=== PATIENT | male | born 1950 ===

== ENCOUNTER → 2018-06-16 | Outpatient (CLI) | payer MEDICARE, OTHER | LOC: DL.CLIN 15:30 | DX: D49.2 Neoplasm of unspecified behavior of bone, soft tissue, and skin (principal) | CPT/HCPCS: 99212 ==

== ENCOUNTER 2020-01-20 14:22 | Inpatient (IN) | payer MEDICARE, OTHER ==
[2020-01-20] MEDS ORDERED: Sodium Chloride 0.9% 10 ML Syringe FLUSH PRN ×2 (14:30→17:46)
[2020-01-20] MEDS ORDERED: Aspirin 81 MG Tab.Chew PO ONE (14:31)
[2020-01-20] MEDS: Nitroglycerin 0.4 MG Tab.SL SL PRN ×2 (14:49→15:03)
--- NOTE | 2020-01-20 15:05 | CR ---
PROCEDURE INFORMATION: Exam: XR Chest, 1 View Exam date and time: 01/20/2020 2:43 PM Age: 69 years old Clinical indication: Chest pain TECHNIQUE: Imaging protocol: XR of the chest Views: 1 view. COMPARISON: No relevant prior studies available. FINDINGS: Lungs: Unremarkable. No consolidation. Pleural space: Unremarkable. No pleural effusion. No pneumothorax. Heart/Mediastinum: Unremarkable. No cardiomegaly. Bones/joints: Unremarkable. IMPRESSION: No acute findings.
[2020-01-20 15:13] LABS: ANION GAP 15.2 mEq/L (7-13); CHLORIDE,CL 103 mmol/L (98-107); SODIUM,NA 139 mmol/L (136-145)
--- NOTE | 2020-01-20 15:55 | EDM.PDOC ---
Scribed by Reina Mullen 01/20/20 1510 for Betty Gutierrez MD ED HPI GENERAL MEDICAL PROBLEM - General Chief Complaint: Chest Pain Stated Complaint: CHEST PAINS/LEFT ARM PAIN Time Seen by Provider: 01/20/20 14:25 Source of Information: Reports: Patient, RN, RN Notes Reviewed History Limitations: Reports: No Limitations - History of Present Illness INITIAL COMMENTS - FREE TEXT/NARRATIVE: Patient presents to ED by POV with complaint of chest pain tht began in the past hour. Earlier today the patient had been deer hunting and walked longer than usual and exerted himself more than usual. He shot a deer and drug it back to his truck. He tried to lift into the bed of his truck but was unable and had to go and get help. Shortly after he had onset of chest pain that radiated to the left shoulder and left arm. He admits to mild shortness of breath. Denies nausea, palpitations or syncope. Denies history of coronary artery disease, hypertension or hyperlipidemia. Admits to smoking to 1.5 packs of cigarettes per day since age 18. Onset: Today Duration: Getting Worse Location: Reports: Chest Quality: Reports: Ache Severity: Severe Improves with: Reports: None Worsens with: Reports: None Associated Symptoms: Reports: No Other Symptoms Chest Pain Score (Numeric/FACES): 5 - Related Data Allergies Allergy/AdvReac Type Severity Reaction Status Date / Time No Known Allergies Allergy Verified 09/15/15 00:20 Home Meds: Home Meds . [No Known Home Meds] 09/15/15 [History] ED ROS GENERAL - Review of Systems Review Of Systems: Comprehensive ROS is negative, except as noted in HPI. ED EXAM, GENERAL - Physical Exam Exam: See Below Exam Limited By: No Limitations General Appearance: Alert, No Apparent Distress Eye Exam: Bilateral Eye: Normal Inspection Ears: Hearing Grossly Normal Nose: Normal Inspection, Normal Mucosa, No Blood Throat/Mouth: Normal Lips, Normal Voice, No Airway Compromise Head: Atraumatic, Normocephalic Neck: Normal Inspection, Supple, Non-Tender, Full Range of Motion Respiratory/Chest: No Respiratory Distress, No Accessory Muscle Use, Chest Non- Tender, Decreased Breath Sounds, Other (Coarse breath sounds throughout B/L ). No: Rales, Rhonchi, Wheezing, Stridor Cardiovascular: Normal Peripheral Pulses, Regular Rate, Rhythm, No Edema, No G allop, No JVD, No Murmur, No Rub GI/Abdominal: Normal Bowel Sounds, Soft, Non-Tender, No Organomegaly, No Distention, No Abnormal Bruit, No Mass Back Exam: Normal Inspection Extremities: Normal Inspection, Normal Range of Motion, Non-Tender, Normal Capillary Refill, No Pedal Edema Neurological: Alert, Oriented, CN II-XII Intact, Normal Cognition, Normal Gait, No Motor/Sensory Deficits Psychiatric: Normal Affect, Normal Mood Skin Exam: Warm, Dry, Intact, No Rash, Other (Dusky todd coloration on arrival.) #1 Interpretation EKG Date: 01/20/20 Time: 14:33 Rhythm: Other (sinus rhythm) Rate (Beats/Min): 92 Webster: Normal P-Wave: Present QRS: Normal ST-T: Other (repolarization abnormality suggests ischemia, anterior-lateral leads.) QT: Normal #2 Interpretation EKG Date: 01/20/20 Time: 15:35 Rhythm: Other (sinus rhythm) Rate (Beats/Min): 82 Webster: Normal P-Wave: Present QRS: Normal ST-T: Other (borderline repolarization abnoirmality) QT: Normal Course - Vital Signs Last Recorded V/S: Last Vital Signs Temp 97.9 F 01/20/20 14:34 Pulse 93 01/20/20 14:34 Resp 19 01/20/20 14:34 BP 117/87 01/20/20 15:03 Pulse Ox 95 01/20/20 14:34 - Orders/Labs/Meds Orders: Active Orders 24 hr Category Date Time Status EKG 12 Lead [EKG Documentation Completion] [RC] STAT Care 01/20/20 14:24 Active Peripheral IV Care [RC] . DIRECTED Care 01/20/20 14:31 Active Nitroglycerin [Nitrostat] Med 01/20/20 14:31 Active 0.4 mg SL Q5M PRN Sodium Chloride 0.9% [Saline Flush] Med 01/20/20 14:30 Active 10 ml FLUSH ASDIRECTED PRN Peripheral IV Insertion Adult [OM.PC] Stat Oth 01/20/20 14:31 Ordered Medication Orders Nitroglycerin (Nitrostat) 0.4 mg SL Q5M PRN PRN Reason: Chest Pain Last Admin: 01/20/20 15:03 Dose: 0.4 mg Documented by: Admin: 01/20/20 14:49 Dose: 0.4 mg Documented by: DUSTY Sodium Chloride (Saline Flush) 10 ml FLUSH ASDIRECTED PRN PRN Reason: Keep Vein Open Last Admin: 01/20/20 14:49 Dose: 10 ml Documented by: DUSTY Labs: Laboratory Tests 01/20/20 01/20/20 01/20/20 Range/Units 14:40 14:40 14:40 WBC 12.8 H (5.0-10.0) 10^3/uL RBC 5.70 (4.6-6.2) 10^6/uL Hgb 17.1 (14.0-18.0) g/dL Hct 50.5 (40.0-54.0) % MCV 88.6 (80-100) fL MCH 30.0 (27.0-34.0) pg MCHC 33.9 (33.0-35.0) g/dL Plt Count 241 (150-450) 10^3/uL Neut % (Auto) 73.8 (42.2-75.2) % Lymph % (Auto) 18.5 L (20.5-50.1) % Cannon % (Auto) 6.7 (2-8) % Eos % (Auto) 0.5 L (1.0-3.0) % Baso % (Auto) 0.5 (0.0-1.0) % PT 10.2 (9.0-12.0) SEC INR 1.1 (0.9-1.2) APTT (22.0-34.0) SEC D-Dimer, Quantitative 992 H (0-400) ng/mL Sodium 139 (136-145) mmol/L Potassium 4.2 (3.5-5.1) mmol/L Chloride 103 (98-107) mmol/L Carbon Dioxide 25 (21-32) mmol/L Anion Gap 15.2 H (7-13) mEq/L BUN 28 H (7-18) mg/dL Creatinine 1.93 H (0.70-1.30) mg/dL Est Cr Clr Drug Dosing 39.65 mL/min Estimated GFR (MDRD) 35 BUN/Creatinine Ratio 14.5 (No establ ref range) Glucose 127 H (74-99) mg/dL Calcium 9.2 (8.5-10.1) mg/dL Total Bilirubin 0.3 (0.2-1.0) mg/dL AST 18 (15-37) U/L ALT 22 (16-63) U/L Alkaline Phosphatase 92 (46-116) U/L Creatine Kinase 234 (39-308) U/L Troponin I < 0.017 (0.000-0.056) ng/mL C-Reactive Protein 1.5 H (0.0-0.9) mg/dL B-Natriuretic Peptide 11 (0-100) pg/ml Total Protein 7.7 (6.4-8.2) g/dL Albumin 3.7 (3.4-5.0) g/dL Globulin 4.0 Albumin/Globulin Ratio 0.9 Amylase 71 (25-115) U/L Lipase 174 (73-393) U/L SARS CoV-2 RNA Rapid VASU (NEGATIVE) 01/20/20 01/20/20 Range/Units 14:40 14:55 WBC (5.0-10.0) 10^3/uL RBC (4.6-6.2) 10^6/uL Hgb (14.0-18.0) g/dL Hct (40.0-54.0) % MCV (80-100) fL MCH (27.0-34.0) pg MCHC (33.0-35.0) g/dL Plt Count (150-450) 10^3/uL Neut % (Auto) (42.2-75.2) % Lymph % (Auto) (20.5-50.1) % Cannon % (Auto) (2-8) % Eos % (Auto) (1.0-3.0) % Baso % (Auto) (0.0-1.0) % PT (9.0-12.0) SEC INR (0.9-1.2) APTT 21.9 L (22.0-34.0) SEC D-Dimer, Quantitative (0-400) ng/mL Sodium (136-145) mmol/L Potassium (3.5-5.1) mmol/L Chloride (98-107) mmol/L Carbon Dioxide (21-32) mmol/L Anion Gap (7-13) mEq/L BUN (7-18) mg/dL Creatinine (0.70-1.30) mg/dL Est Cr Clr Drug Dosing mL/min Estimated GFR (MDRD) BUN/Creatinine Ratio (No establ ref range) Glucose (74-99) mg/dL Calcium (8.5-10.1) mg/dL Total Bilirubin (0.2-1.0) mg/dL AST (15-37) U/L ALT (16-63) U/L Alkaline Phosphatase (46-116) U/L Creatine Kinase (39-308) U/L Troponin I (0.000-0.056) ng/mL C-Reactive Protein (0.0-0.9) mg/dL B-Natriuretic Peptide (0-100) pg/ml Total Protein (6.4-8.2) g/dL Albumin (3.4-5.0) g/dL Globulin Albumin/Globulin Ratio Amylase (25-115) U/L Lipase (73-393) U/L SARS CoV-2 RNA Rapid VASU Negative (NEGATIVE) Meds: Medications Generic Name Dose Route Start Last Admin Trade Name Freq PRN Reason Stop Dose Admin Nitroglycerin 0.4 mg 01/20/20 14:31 01/20/20 15:03 Nitrostat SL 0.4 mg Q5M PRN Administration Chest Pain Sodium Chloride 10 ml 01/20/20 14:30 01/20/20 14:49 Saline Flush FLUSH 10 ml ASDIRECTED PRN Administration Keep Vein Open Discontinued Medications Generic Name Dose Route Start Last Admin Trade Name Freq PRN Reason Stop Dose Admin Aspirin 324 mg 01/20/20 14:31 01/20/20 14:48 Aspirin PO 01/20/20 14:32 324 mg ONETIME ONE Administration - Radiology Interpretation Free Text/Narrative:: [facility] Final Radiology Report Call: [phone] assistance Online chat: [email or web address] Name: RICK CARRERA Age: 69Years M Date: 01/20/2020 SSN: -- : [id number] Study: CR CHEST 1V FRONTAL Requesting Physician: BETTY GUTIERREZ Images: 1 Addl Studies: Provided Clinical History: chest pain Contrast: Contrast Medium: Contrast Amount: Contrast Method: CONFIDENTIALITY STATEMENT This report is intended only for use by the referring physician, and only in accordance with law. If you received this in error, call [phone]. Page 1 of 1 PROCEDURE INFORMATION: Exam: XR Chest, 1 View Exam date and time: 01/20/2020 2:43 PM Age: 69 years old Clinical indication: Chest pain TECHNIQUE: Imaging protocol: XR of the chest Views: 1 view. COMPARISON: No relevant prior studies available. FINDINGS: Lungs: Unremarkable. No consolidation. Pleural space: Unremarkable. No pleural effusion. No pneumothorax. Heart/Mediastinum: Unremarkable. No cardiomegaly. Bones/joints: Unremarkable. IMPRESSION: No acute findings. Thank you for allowing us to participate in the care of your patient. Dictated and Authenticated by: Favio Arias MD 01/20/2020 3:05 PM Central Time ([place] & [place]) Departure - Departure Time of Disposition: 15:55 (admitted to Dr. Hinton) Disposition: Refer to Observation Condition: Undetermined Clinical Impression: Chest pain, rule out acute myocardial infarction Forms: ED Department Discharge Sepsis Event Note (ED) - Evaluation Sepsis Screening Result: No Definite Risk - Focused Exam Vital Signs: Vital Signs Temp Pulse Resp BP BP Pulse Ox 01/20/20 15:03 117/87 01/20/20 14:49 144/67 H 01/20/20 14:34 97.9 F 93 19 148/74 H 95 - My Orders Last 24 Hours: My Active Orders 01/20/20 14:24 EKG 12 Lead [EKG Documentation Completion] [RC] STAT 01/20/20 14:30 Sodium Chloride 0.9% [Saline Flush] 10 ml FLUSH ASDIRECTED PRN 01/20/20 14:31 Peripheral IV Care [RC] . DIRECTED Nitroglycerin [Nitrostat] 0.4 mg SL Q5M PRN Peripheral IV Insertion Adult [OM.PC] Stat - Assessment/Plan Last 24 Hours: My Active Orders 01/20/20 14:24 EKG 12 Lead [EKG Documentation Completion] [RC] STAT 01/20/20 14:30 Sodium Chloride 0.9% [Saline Flush] 10 ml FLUSH ASDIRECTED PRN 01/20/20 14:31 Peripheral IV Care [RC] . DIRECTED Nitroglycerin [Nitrostat] 0.4 mg SL Q5M PRN Peripheral IV Insertion Adult [OM.PC] Stat I have read and agree with the documentation that has been completed regarding this visit. By signing this record, I attest that the documentation was completed in my physical presence and is an accurate record of the encounter.
[2020-01-20] MEDS ORDERED: Acetaminophen 325 MG Tab PO PRN (17:46)
[2020-01-20] MEDS ORDERED: Ondansetron 4 MG Tab.DIS PO PRN (17:46)
[2020-01-20] MEDS ORDERED: Zolpidem 5 MG Tab PO PRN (17:46)
--- NOTE | 2020-01-20 17:46 | PCM.HP ---
H&P History of Present Illness - General Date of Service: 01/20/20 Admit Problem/Dx: Admission Diagnosis/Problem Admission Diagnosis/Problem Chest pain Source of Information: Patient - History of Present Illness Initial Comments - Free Text/Narative: 69-year-old gentleman with a known significant chronic medical history. Taking no medications. He was last evaluated about a year ago when he was found to have a precancerous skin lesion that was removed the patient has good general exercise tolerance. Has been walking regularly without chest Pain, shortness of breath. On the day of admission the patient was hunting, shot a deer, dragged out to the pickup, field dressed it. later at home while sitting in the recliner he developed left lower chest pain associated with mild sweating, left arm ache. He came to the emergency room. Received 2 sublingual nitroglycerin and the pain resolved. Total duration was about 2 hours. Now he is feeling back to normal. No pain, no shortness of breath. Chest Pain Score (Numeric/FACES): 5 - Related Data Allergies/Adverse Reactions: Allergies Allergy/AdvReac Type Severity Reaction Status Date / Time Fish Containing Products Allergy Cannot Verified 01/20/20 16:50 Remember Home Medications: Home Meds . [No Known Home Meds] 09/15/15 [History] Past Medical History - Past Health History Medical/Surgical History: Denies Medical/Surgical History Oncologic (Cancer) History: Reports: Basal Cell Carcinoma - Infectious Disease History Infectious Disease History: Reports: Chicken Pox, Measles, Mumps Social & Family History - Family History Family Medical History: Noncontributory - Tobacco Use Tobacco Use Status *Q: Current Every Day Tobacco User Years of Tobacco use: 40 Packs/Tins Daily: 1.5 - Caffeine Use Caffeine Use: Reports: Coffee, Soda - Recreational Drug Use Recreational Drug Use: No H&P Review of Systems - Review of Systems: Review Of Systems: See Below General: Denies: Fever, Chills Pulmonary: Denies: Shortness of Breath, Wheezing Cardiovascular: Reports: Chest Pain. Denies: Edema Gastrointestinal: Denies: Abdominal Pain Genitourinary: Denies: Dysuria Neurological: Denies: Confusion Exam - Exam Exam: See Below - Vital Signs Vital Signs: Last Vital Signs Temp 97.8 F 01/20/20 16:50 Pulse 79 01/20/20 16:50 Resp 20 01/20/20 16:50 BP 130/86 01/20/20 16:50 Pulse Ox 98 01/20/20 16:50 Weight: 226 lb 6.4 oz - Exam General: Alert, Oriented Neck: Supple, Trachea Midline Lungs: Clear to Auscultation, Normal Respiratory Effort Cardiovascular: Regular Rate, Regular Rhythm GI/Abdominal Exam: Normal Bowel Sounds, Soft, Non-Tender Extremities: No Pedal Edema - Patient Data Lab Results Last 24 hrs: Laboratory Results - last 24 hr 01/20/20 01/20/20 01/20/20 Range/Units 14:40 14:40 14:40 WBC 12.8 H (5.0-10.0) 10^3/uL RBC 5.70 (4.6-6.2) 10^6/uL Hgb 17.1 (14.0-18.0) g/dL Hct 50.5 (40.0-54.0) % MCV 88.6 (80-100) fL MCH 30.0 (27.0-34.0) pg MCHC 33.9 (33.0-35.0) g/dL Plt Count 241 (150-450) 10^3/uL Neut % (Auto) 73.8 (42.2-75.2) % Lymph % (Auto) 18.5 L (20.5-50.1) % Sac % (Auto) 6.7 (2-8) % Eos % (Auto) 0.5 L (1.0-3.0) % Baso % (Auto) 0.5 (0.0-1.0) % PT 10.2 (9.0-12.0) SEC INR 1.1 (0.9-1.2) APTT (22.0-34.0) SEC D-Dimer, Quantitative 992 H (0-400) ng/mL Sodium 139 (136-145) mmol/L Potassium 4.2 (3.5-5.1) mmol/L Chloride 103 (98-107) mmol/L Carbon Dioxide 25 (21-32) mmol/L Anion Gap 15.2 H (7-13) mEq/L BUN 28 H (7-18) mg/dL Creatinine 1.93 H (0.70-1.30) mg/dL Est Cr Clr Drug Dosing 39.65 mL/min Estimated GFR (MDRD) 35 BUN/Creatinine Ratio 14.5 (No establ ref range) Glucose 127 H (74-99) mg/dL Calcium 9.2 (8.5-10.1) mg/dL Total Bilirubin 0.3 (0.2-1.0) mg/dL AST 18 (15-37) U/L ALT 22 (16-63) U/L Alkaline Phosphatase 92 (46-116) U/L Creatine Kinase 234 (39-308) U/L Troponin I < 0.017 (0.000-0.056) ng/mL C-Reactive Protein 1.5 H (0.0-0.9) mg/dL B-Natriuretic Peptide 11 (0-100) pg/ml Total Protein 7.7 (6.4-8.2) g/dL Albumin 3.7 (3.4-5.0) g/dL Globulin 4.0 Albumin/Globulin Ratio 0.9 Amylase 71 (25-115) U/L Lipase 174 (73-393) U/L SARS CoV-2 RNA Rapid VASU (NEGATIVE) 01/20/20 01/20/20 Range/Units 14:40 14:55 WBC (5.0-10.0) 10^3/uL RBC (4.6-6.2) 10^6/uL Hgb (14.0-18.0) g/dL Hct (40.0-54.0) % MCV (80-100) fL MCH (27.0-34.0) pg MCHC (33.0-35.0) g/dL Plt Count (150-450) 10^3/uL Neut % (Auto) (42.2-75.2) % Lymph % (Auto) (20.5-50.1) % Sac % (Auto) (2-8) % Eos % (Auto) (1.0-3.0) % Baso % (Auto) (0.0-1.0) % PT (9.0-12.0) SEC INR (0.9-1.2) APTT 21.9 L (22.0-34.0) SEC D-Dimer, Quantitative (0-400) ng/mL Sodium (136-145) mmol/L Potassium (3.5-5.1) mmol/L Chloride (98-107) mmol/L Carbon Dioxide (21-32) mmol/L Anion Gap (7-13) mEq/L BUN (7-18) mg/dL Creatinine (0.70-1.30) mg/dL Est Cr Clr Drug Dosing mL/min Estimated GFR (MDRD) BUN/Creatinine Ratio (No establ ref range) Glucose (74-99) mg/dL Calcium (8.5-10.1) mg/dL Total Bilirubin (0.2-1.0) mg/dL AST (15-37) U/L ALT (16-63) U/L Alkaline Phosphatase (46-116) U/L Creatine Kinase (39-308) U/L Troponin I (0.000-0.056) ng/mL C-Reactive Protein (0.0-0.9) mg/dL B-Natriuretic Peptide (0-100) pg/ml Total Protein (6.4-8.2) g/dL Albumin (3.4-5.0) g/dL Globulin Albumin/Globulin Ratio Amylase (25-115) U/L Lipase (73-393) U/L SARS CoV-2 RNA Rapid VASU Negative (NEGATIVE) Result Diagrams: 01/20/20 14:40 01/20/20 14:40 Nico Results Last 24 hrs: EKG per my reading shows 1 and aVL T-wave inversion. - Problem List (1) Renal failure SNOMED Code(s): 83948801 ICD Code: N19 - UNSPECIFIED KIDNEY FAILURE Status: Acute Current Visit: Yes (2) Chest pain, rule out acute myocardial infarction SNOMED Code(s): 38712036 ICD Code: R07.9 - CHEST PAIN, UNSPECIFIED Status: Acute Current Visit: No Problem List Initiated/Reviewed/Updated: Yes Orders Last 24hrs: Active Orders 24 hr Category Date Time Status Admission Diagnosis [ADT] Routine ADT 01/20/20 16:08 Ordered Admission Status [Patient Status] [ADT] Routine ADT 01/20/20 16:08 Active Telemetry Monitoring [Cardiac Monitoring] [RC] . Care 01/20/20 17:20 Active DIRECTED BASIC METABOLIC PANEL,BMP [CHEM] AM Lab 01/21/20 05:15 Ordered CBC WITH AUTO DIFF [HEME] AM Lab 01/21/20 05:15 Ordered CULTURE BLOOD [BC] Stat Lab 01/20/20 17:39 Ordered CULTURE BLOOD [BC] Stat Lab 01/20/20 17:39 Ordered CULTURE URINE [RM] Routine Lab 01/20/20 17:39 Ordered TROPONIN I [CHEM] AM Lab 01/21/20 05:11 Ordered TROPONIN I [CHEM] Timed Lab 01/20/20 23:00 Ordered UA W/MICROSCOPIC [URIN] Routine Lab 01/20/20 17:39 Ordered Aspirin Med 01/21/20 08:00 Ordered 325 mg PO WITHBREAKFAST Nitroglycerin [Nitrostat] Med 01/20/20 14:31 Active 0.4 mg SL Q5M PRN Sodium Chloride 0.9% [Saline Flush] Med 01/20/20 14:30 Active 10 ml FLUSH ASDIRECTED PRN Blood Culture x2 Reflex Set [OM.PC] Stat Oth 01/20/20 17:39 Ordered Peripheral IV Insertion Adult [OM.PC] Stat Oth 01/20/20 14:31 Ordered Medication Orders Aspirin (Aspirin) 325 mg PO WITHBREAKFAST COOPER Nitroglycerin (Nitrostat) 0.4 mg SL Q5M PRN PRN Reason: Chest Pain Last Admin: 01/20/20 15:03 Dose: 0.4 mg Documented by: Admin: 01/20/20 14:49 Dose: 0.4 mg Documented by: DUSTY Sodium Chloride (Saline Flush) 10 ml FLUSH ASDIRECTED PRN PRN Reason: Keep Vein Open Last Admin: 01/20/20 14:49 Dose: 10 ml Documented by: DUSTY Assessment/Plan Comment:: 69-year-old with a no known chronic medical disease presented with chest pain. Chest pain EKG questionable lateral changes, chest x-ray is negative, For evaluation we'll monitor on telemetry Repeat troponins Obtain lipid panel Start the patient on aspirin Leukocytosis Might be reactive Obtain urinalysis and culture Obtain blood cultures Chest x-ray was negative Hold antibiotic now Covid 19 negative renal failure Unclear if it is acute or chronic Will recheck in the morning Will need outpatient follow-up DVT prophylaxis with subcutaneous heparin
[2020-01-20] MEDS ORDERED: Heparin Sodium 5,000 Units/ML Vial SUBCUT SCH (22:00)
[2020-01-21] MEDS ORDERED: Aspirin 325 MG Tab PO ONE (00:15)
[2020-01-21] MEDS ORDERED: atorvaSTATin 20 MG Tab PO SCH (00:17)
[2020-01-21] MEDS: Enoxaparin 60 MG/0.6 ML Syringe SUBCUT SCH ×2 (00:27→08:57)
[2020-01-21] MEDS ORDERED: Clopidogrel 75 MG Tab PO ONE (00:42)
[2020-01-21 07:22] LABS: ANION GAP 13.5 mEq/L (7-13)
[2020-01-21] MEDS ORDERED: Aspirin 325 MG Tab PO SCH (08:00)
[2020-01-21] MEDS ORDERED: Metoprolol Tartrate 25 MG Tab PO SCH (11:00)
[2020-01-21] MEDS ORDERED: Clopidogrel 75 MG Tab PO SCH (11:00)
--- NOTE | 2020-01-21 13:52 | PCM.PN ---
- General Info Date of Service: 01/21/20 Admission Dx/Problem (Free Text): Admission Diagnosis/Problem Admission Diagnosis/Problem Chest pain Subjective Update: the patient was admitted with chest pain. Overnight remained hemodynamically stable, chest pain-free. No associated shortness of breath. Overnight the patient's troponins increase. Was started on aspirin, Plavix, therapeutic Lovenox dose Functional Status: Reports: Pain Controlled - Review of Systems General: Denies: Fever Pulmonary: Denies: Shortness of Breath Cardiovascular: Denies: Chest Pain Gastrointestinal: Denies: Abdominal Pain Neurological: Denies: Confusion - Patient Data Vitals - Most Recent: Last Vital Signs Temp 99.2 F 01/21/20 08:42 Pulse 78 01/21/20 10:45 Resp 20 01/21/20 08:42 BP 122/68 01/21/20 10:45 Pulse Ox 97 01/21/20 08:42 Weight - Most Recent: 226 lb 6.4 oz I&O - Last 24 Hours: Intake & Output 01/20/20 01/21/20 01/21/20 22:59 06:59 14:59 Intake Total 540 50 Balance 540 50 Lab Results Last 24 Hours: Laboratory Results - last 24 hr 01/20/20 01/20/20 01/20/20 Range/Units 14:40 14:40 14:40 WBC 12.8 H (5.0-10.0) 10^3/uL RBC 5.70 (4.6-6.2) 10^6/uL Hgb 17.1 (14.0-18.0) g/dL Hct 50.5 (40.0-54.0) % MCV 88.6 (80-100) fL MCH 30.0 (27.0-34.0) pg MCHC 33.9 (33.0-35.0) g/dL Plt Count 241 (150-450) 10^3/uL Neut % (Auto) 73.8 (42.2-75.2) % Lymph % (Auto) 18.5 L (20.5-50.1) % [place] % (Auto) 6.7 (2-8) % Eos % (Auto) 0.5 L (1.0-3.0) % Baso % (Auto) 0.5 (0.0-1.0) % PT 10.2 (9.0-12.0) SEC INR 1.1 (0.9-1.2) APTT (22.0-34.0) SEC D-Dimer, Quantitative 992 H (0-400) ng/mL Sodium 139 (136-145) mmol/L Potassium 4.2 (3.5-5.1) mmol/L Chloride 103 (98-107) mmol/L Carbon Dioxide 25 (21-32) mmol/L Anion Gap 15.2 H (7-13) mEq/L BUN 28 H (7-18) mg/dL Creatinine 1.93 H (0.70-1.30) mg/dL Est Cr Clr Drug Dosing 39.65 mL/min Estimated GFR (MDRD) 35 BUN/Creatinine Ratio 14.5 (No establ ref range) Glucose 127 H (74-99) mg/dL Calcium 9.2 (8.5-10.1) mg/dL Total Bilirubin 0.3 (0.2-1.0) mg/dL AST 18 (15-37) U/L ALT 22 (16-63) U/L Alkaline Phosphatase 92 (46-116) U/L Creatine Kinase 234 (39-308) U/L Troponin I < 0.017 (0.000-0.056) ng/mL C-Reactive Protein 1.5 H (0.0-0.9) mg/dL B-Natriuretic Peptide 11 (0-100) pg/ml Total Protein 7.7 (6.4-8.2) g/dL Albumin 3.7 (3.4-5.0) g/dL Globulin 4.0 Albumin/Globulin Ratio 0.9 Amylase 71 (25-115) U/L Lipase 174 (73-393) U/L Urine Color (YELLOW) Urine Appearance (CLEAR) Urine pH (5.0-9.0) Ur Specific [place] (1.005-1.030) Urine Protein (NEGATIVE) Urine Glucose (UA) (NEGATIVE) Urine Ketones (NEGATIVE) Urine Occult Blood (NEGATIVE) Urine Nitrite (NEGATIVE) Urine Bilirubin (NEGATIVE) Urine Urobilinogen (0.2-1.0) mg/dL Ur Leukocyte Esterase (NEGATIVE) Urine RBC /HPF Urine WBC (0-5/HPF) /HPF Ur Epithelial Cells (NOT SEEN) /HPF Amorphous Sediment (NOT SEEN) /HPF Urine Bacteria (0-FEW/HPF) /HPF Granular Casts (Auto) Fine Granular Casts (NOT SEEN) /LPF Urine Mucus (NOT SEEN) /LPF SARS CoV-2 RNA Rapid VASU (NEGATIVE) 01/20/20 01/20/20 01/20/20 Range/Units 14:40 14:55 19:00 WBC (5.0-10.0) 10^3/uL RBC (4.6-6.2) 10^6/uL Hgb (14.0-18.0) g/dL Hct (40.0-54.0) % MCV (80-100) fL MCH (27.0-34.0) pg MCHC (33.0-35.0) g/dL Plt Count (150-450) 10^3/uL Neut % (Auto) (42.2-75.2) % Lymph % (Auto) (20.5-50.1) % [place] % (Auto) (2-8) % Eos % (Auto) (1.0-3.0) % Baso % (Auto) (0.0-1.0) % PT (9.0-12.0) SEC INR (0.9-1.2) APTT 21.9 L (22.0-34.0) SEC D-Dimer, Quantitative (0-400) ng/mL Sodium (136-145) mmol/L Potassium (3.5-5.1) mmol/L Chloride (98-107) mmol/L Carbon Dioxide (21-32) mmol/L Anion Gap (7-13) mEq/L BUN (7-18) mg/dL Creatinine (0.70-1.30) mg/dL Est Cr Clr Drug Dosing mL/min Estimated GFR (MDRD) BUN/Creatinine Ratio (No establ ref range) Glucose (74-99) mg/dL Calcium (8.5-10.1) mg/dL Total Bilirubin (0.2-1.0) mg/dL AST (15-37) U/L ALT (16-63) U/L Alkaline Phosphatase (46-116) U/L Creatine Kinase (39-308) U/L Troponin I (0.000-0.056) ng/mL C-Reactive Protein (0.0-0.9) mg/dL B-Natriuretic Peptide (0-100) pg/ml Total Protein (6.4-8.2) g/dL Albumin (3.4-5.0) g/dL Globulin Albumin/Globulin Ratio Amylase (25-115) U/L Lipase (73-393) U/L Urine Color Yellow (YELLOW) Urine Appearance Clear (CLEAR) Urine pH 5.5 (5.0-9.0) Ur Specific [place] >= 1.030 (1.005-1.030) Urine Protein 100 H (NEGATIVE) Urine Glucose (UA) Negative (NEGATIVE) Urine Ketones Negative (NEGATIVE) Urine Occult Blood Trace-intact H (NEGATIVE) Urine Nitrite Negative (NEGATIVE) Urine Bilirubin Negative (NEGATIVE) Urine Urobilinogen 0.2 (0.2-1.0) mg/dL Ur Leukocyte Esterase Negative (NEGATIVE) Urine RBC 0-5 /HPF Urine WBC 0-5 (0-5/HPF) /HPF Ur Epithelial Cells Rare (NOT SEEN) /HPF Amorphous Sediment Few (NOT SEEN) /HPF Urine Bacteria Few (0-FEW/HPF) /HPF Granular Casts (Auto) Few Fine Granular Casts Occasional H (NOT SEEN) /LPF Urine Mucus Few H (NOT SEEN) /LPF SARS CoV-2 RNA Rapid VASU Negative (NEGATIVE) 01/20/20 01/21/20 01/21/20 Range/Units 23:24 06:34 06:34 WBC 13.8 H (5.0-10.0) 10^3/uL RBC 5.24 (4.6-6.2) 10^6/uL Hgb 15.8 (14.0-18.0) g/dL Hct 47.3 (40.0-54.0) % MCV 90.3 (80-100) fL MCH 30.2 (27.0-34.0) pg MCHC 33.4 (33.0-35.0) g/dL Plt Count 218 (150-450) 10^3/uL Neut % (Auto) 75.4 H (42.2-75.2) % Lymph % (Auto) 17.6 L (20.5-50.1) % [place] % (Auto) 6.7 (2-8) % Eos % (Auto) 0.2 L (1.0-3.0) % Baso % (Auto) 0.1 (0.0-1.0) % PT (9.0-12.0) SEC INR (0.9-1.2) APTT (22.0-34.0) SEC D-Dimer, Quantitative (0-400) ng/mL Sodium 138 (136-145) mmol/L Potassium 4.5 (3.5-5.1) mmol/L Chloride 104 (98-107) mmol/L Carbon Dioxide 25 (21-32) mmol/L Anion Gap 13.5 H (7-13) mEq/L BUN 30 H (7-18) mg/dL Creatinine 1.61 H (0.70-1.30) mg/dL Est Cr Clr Drug Dosing 47.53 mL/min Estimated GFR (MDRD) 43 BUN/Creatinine Ratio (No establ ref range) Glucose 124 H (74-99) mg/dL Calcium 9.2 (8.5-10.1) mg/dL Total Bilirubin (0.2-1.0) mg/dL AST (15-37) U/L ALT (16-63) U/L Alkaline Phosphatase (46-116) U/L Creatine Kinase (39-308) U/L Troponin I 7.467 H* 19.147 H* (0.000-0.056) ng/mL C-Reactive Protein (0.0-0.9) mg/dL B-Natriuretic Peptide (0-100) pg/ml Total Protein (6.4-8.2) g/dL Albumin (3.4-5.0) g/dL Globulin Albumin/Globulin Ratio Amylase (25-115) U/L Lipase (73-393) U/L Urine Color (YELLOW) Urine Appearance (CLEAR) Urine pH (5.0-9.0) Ur Specific [place] (1.005-1.030) Urine Protein (NEGATIVE) Urine Glucose (UA) (NEGATIVE) Urine Ketones (NEGATIVE) Urine Occult Blood (NEGATIVE) Urine Nitrite (NEGATIVE) Urine Bilirubin (NEGATIVE) Urine Urobilinogen (0.2-1.0) mg/dL Ur Leukocyte Esterase (NEGATIVE) Urine RBC /HPF Urine WBC (0-5/HPF) /HPF Ur Epithelial Cells (NOT SEEN) /HPF Amorphous Sediment (NOT SEEN) /HPF Urine Bacteria (0-FEW/HPF) /HPF Granular Casts (Auto) Fine Granular Casts (NOT SEEN) /LPF Urine Mucus (NOT SEEN) /LPF SARS CoV-2 RNA Rapid VASU (NEGATIVE) Med Orders - Current: Current Medications Acetaminophen (Tylenol) 650 mg PO Q4H PRN PRN Reason: Pain (Mild 1-3)/fever Aspirin (Aspirin) 325 mg PO WITHBREAKFAST [facility] Last Admin: 01/21/20 08:57 Dose: 325 mg Documented by: Atorvastatin Calcium (Lipitor) 20 mg PO BEDTIME [facility] Last Admin: 01/21/20 00:28 Dose: 20 mg Documented by: Clopidogrel Bisulfate (Plavix) 75 mg PO DAILY [facility] Last Admin: 01/21/20 10:46 Dose: 75 mg Documented by: Enoxaparin Sodium (Lovenox) 60 mg SUBCUT Q12HR [facility] Last Admin: 01/21/20 08:57 Dose: 60 mg Documented by: Metoprolol Tartrate (Lopressor) 25 mg PO BID [facility] Last Admin: 01/21/20 10:45 Dose: 25 mg Documented by: Nitroglycerin (Nitrostat) 0.4 mg SL Q5M PRN PRN Reason: Chest Pain Last Admin: 01/20/20 15:03 Dose: 0.4 mg Documented by: Ondansetron HCl (Zofran Odt) 4 mg PO Q6H PRN PRN Reason: nausea, able to take PO Sodium Chloride (Saline Flush) 10 ml FLUSH ASDIRECTED PRN PRN Reason: Keep Vein Open Last Admin: 01/21/20 08:57 Dose: 10 ml Documented by: Zolpidem Tartrate (Ambien) 5 mg PO BEDTIME PRN PRN Reason: Sleep Discontinued Medications Aspirin (Aspirin) 324 mg PO ONETIME ONE Stop: 01/20/20 14:32 Last Admin: 01/20/20 14:48 Dose: 324 mg Documented by: Aspirin (Aspirin) 325 mg PO ONETIME ONE Stop: 01/21/20 00:16 Last Admin: 01/21/20 00:27 Dose: 325 mg Documented by: Clopidogrel Bisulfate (Plavix) 300 mg PO ONETIME ONE Stop: 01/21/20 00:43 Last Admin: 01/21/20 00:46 Dose: 300 mg Documented by: Heparin Sodium (Porcine) (Heparin Sodium) 5,000 units SUBCUT Q8HR [facility] Last Admin: 01/20/20 21:47 Dose: Not Given Documented by: Sodium Chloride (Saline Flush) 10 ml FLUSH ASDIRECTED PRN PRN Reason: Keep Vein Open Last Admin: 01/20/20 14:49 Dose: 10 ml Documented by: - Exam Quality Assessment: No: Supplemental Oxygen General: Alert, Oriented Lungs: Clear to Auscultation, Normal Respiratory Effort Cardiovascular: Regular Rate, Regular Rhythm Extremities: No Pedal Edema Skin: Warm Neurological: No New Focal Deficit Psy/Mental Status: Alert, Normal Affect, Normal Mood Sepsis Event Note - Evaluation Sepsis Screening Result: No Definite Risk - Focused Exam Vital Signs: Vital Signs Temp Pulse Pulse Resp BP BP Pulse Ox 01/21/20 10:45 78 122/68 01/21/20 08:42 99.2 F 79 20 122/68 97 - Problem List & Annotations (1) Renal failure SNOMED Code(s): 73626999 Code(s): N19 - UNSPECIFIED KIDNEY FAILURE Status: Acute Current Visit: Yes (2) Chest pain, rule out acute myocardial infarction SNOMED Code(s): 91245248 Code(s): R07.9 - CHEST PAIN, UNSPECIFIED Status: Acute Current Visit: No (3) Acute non-ST elevation myocardial infarction (NSTEMI) SNOMED Code(s): 835328025 Code(s): I21.4 - NON-ST ELEVATION (NSTEMI) MYOCARDIAL INFARCTION Status: Acute Current Visit: Yes - Problem List Review Problem List Initiated/Reviewed/Updated: Yes - My Orders Last 24 Hours: My Active Orders 01/20/20 17:20 Telemetry Monitoring [Cardiac Monitoring] [RC] 01/20/20 17:39 Blood Culture x2 Reflex Set [OM.PC] Stat 01/20/20 17:46 Oxygen Therapy [RC] PRN Up With Assistance [RC] ASDIRECTED VTE/DVT Education [RC] PER UNIT ROUTINE Vital Signs [RC] Q4H Acetaminophen [TylenoL] 650 mg PO Q4H PRN Ondansetron [Zofran ODT] 4 mg PO Q6H PRN Sodium Chloride 0.9% [Saline Flush] 10 ml FLUSH ASDIRECTED PRN Zolpidem [Ambien] 5 mg PO BEDTIME PRN Antiembolic Hose [OM.PC] Per Unit Routine Saline Lock Insert [OM.PC] Routine Resuscitation Status Routine 01/20/20 17:47 Antiembolic Devices [RC] PER UNIT ROUTINE 01/20/20 19:00 CULTURE URINE [RM] Routine 01/20/20 23:24 CULTURE BLOOD [BC] Stat 01/20/20 23:27 CULTURE BLOOD [BC] Stat 01/21/20 00:17 Enoxaparin [Lovenox] 60 mg SUBCUT Q12HR atorvaSTATin [Lipitor] 20 mg PO BEDTIME 01/21/20 Breakfast NPO Now [Nothing per Oral Now Diet] [DIET] 01/21/20 08:00 Aspirin 325 mg PO WITHBREAKFAST 01/21/20 11:00 Clopidogrel [Plavix] 75 mg PO DAILY Metoprolol Tartrate [Lopressor] 25 mg PO BID - Plan Plan:: 69-year-old with a no known chronic medical disease presented with chest pain. acute non-ST CT EKG questionable lateral changes, chest x-ray is negative, troponins are elevated started the patient on aspirin, Plavix, therapeutic dose of Lovenox We'll add metoprolol Leukocytosis Might be reactive Obtain urinalysis and culture Obtain blood cultures Chest x-ray was negative Hold antibiotic now Covid 19 negative renal failure likely acute Appears improving we'll monitor DVT prophylaxis with Lovenox I have called [facility] in [place] I have called [facility] in [place] I think the patient would benefit from further cardiology consultation and evaluation Currently no beds are available for transfer
--- NOTE | 2020-01-21 17:01 | PCM.DCSUM1 ---
Discharge Summary - Hospital Course Free Text/Narrative:: 69-year-old with a no known chronic medical disease presented with chest pain. acute non-ST [place] EKG questionable lateral changes, chest x-ray is negative, troponins are elevated started the patient on aspirin, Plavix, therapeutic dose of Lovenox, metoprolol Leukocytosis Might be reactive pending urinalysis and culture pending blood cultures Chest x-ray was negative Hold antibiotic now Covid 19 negative renal failure likely acute but unknown baseline Appears improving monitor Diagnosis: Stroke: No - Discharge Data Discharge Date: 01/21/20 Discharge Disposition: DC/Tfer to Acute Hospital 02 Condition: Good - Referral to Home Health Primary Care Physician: PCP None - Discharge Diagnosis/Problem(s) (1) Renal failure SNOMED Code(s): 35770810 ICD Code: N19 - UNSPECIFIED KIDNEY FAILURE Status: Acute Current Visit: Yes (2) Chest pain, rule out acute myocardial infarction SNOMED Code(s): 38635906 ICD Code: R07.9 - CHEST PAIN, UNSPECIFIED Status: Acute Current Visit: No (3) Acute non-ST elevation myocardial infarction (NSTEMI) SNOMED Code(s): 459151823 ICD Code: I21.4 - NON-ST ELEVATION (NSTEMI) MYOCARDIAL INFARCTION Status: Acute Current Visit: Yes - Patient Instructions Diet: Heart Healthy Diet Activity: As Tolerated - Discharge Plan *PRESCRIPTION DRUG MONITORING PROGRAM REVIEWED*: Not Applicable *COPY OF PRESCRIPTION DRUG MONITORING REPORT IN PATIENT CHRISTY: Not Applicable Home Medications: Home Meds Aspirin 325 mg PO WITHBREAKFAST tablet 01/21/20 [Rx] Clopidogrel [Plavix] 75 mg PO DAILY tablet 01/21/20 [Rx] Enoxaparin [Lovenox] 60 mg SUBCUT Q12HR syringe 01/21/20 [Rx] Metoprolol Tartrate [Lopressor] 25 mg PO BID tablet 01/21/20 [Rx] Nitroglycerin [Nitrostat] 0.4 mg SL Q5M PRN tab.sl 01/21/20 [Rx] atorvaSTATin [Lipitor] 20 mg PO BEDTIME tablet 01/21/20 [Rx] Oxygen Therapy Mode: Room Air Forms: ED Department Discharge - Discharge Summary/Plan Comment DC Time >30 min.: No - General Info Date of Service: 01/21/20 - Review of Systems General: Denies: Fever, Weakness Pulmonary: Denies: Shortness of Breath Cardiovascular: Denies: Chest Pain Gastrointestinal: Denies: Abdominal Pain Genitourinary: Denies: Dysuria - Patient Data Vitals - Most Recent: Last Vital Signs Temp 99.0 F 01/21/20 12:00 Pulse 80 01/21/20 12:00 Resp 20 01/21/20 12:00 BP 121/68 01/21/20 12:00 Pulse Ox 97 01/21/20 12:00 Weight - Most Recent: 226 lb 6.4 oz I&O - Last 24 hours: Intake & Output 01/21/20 01/21/20 01/21/20 06:59 14:59 22:59 Intake Total 50 800 Balance 50 800 Lab Results - Last 24 hrs: Laboratory Results - last 24 hr 01/20/20 01/20/20 01/21/20 Range/Units 19:00 23:24 06:34 WBC (5.0-10.0) 10^3/uL RBC (4.6-6.2) 10^6/uL Hgb (14.0-18.0) g/dL Hct (40.0-54.0) % MCV (80-100) fL MCH (27.0-34.0) pg MCHC (33.0-35.0) g/dL Plt Count (150-450) 10^3/uL Neut % (Auto) (42.2-75.2) % Lymph % (Auto) (20.5-50.1) % [place] % (Auto) (2-8) % Eos % (Auto) (1.0-3.0) % Baso % (Auto) (0.0-1.0) % Sodium 138 (136-145) mmol/L Potassium 4.5 (3.5-5.1) mmol/L Chloride 104 (98-107) mmol/L Carbon Dioxide 25 (21-32) mmol/L Anion Gap 13.5 H (7-13) mEq/L BUN 30 H (7-18) mg/dL Creatinine 1.61 H (0.70-1.30) mg/dL Est Cr Clr Drug Dosing 47.53 mL/min Estimated GFR (MDRD) 43 Glucose 124 H (74-99) mg/dL Calcium 9.2 (8.5-10.1) mg/dL Troponin I 7.467 H* 19.147 H* (0.000-0.056) ng/mL Urine Color Yellow (YELLOW) Urine Appearance Clear (CLEAR) Urine pH 5.5 (5.0-9.0) Ur Specific [place] >= 1.030 (1.005-1.030) Urine Protein 100 H (NEGATIVE) Urine Glucose (UA) Negative (NEGATIVE) Urine Ketones Negative (NEGATIVE) Urine Occult Blood Trace-intact H (NEGATIVE) Urine Nitrite Negative (NEGATIVE) Urine Bilirubin Negative (NEGATIVE) Urine Urobilinogen 0.2 (0.2-1.0) mg/dL Ur Leukocyte Esterase Negative (NEGATIVE) Urine RBC 0-5 /HPF Urine WBC 0-5 (0-5/HPF) /HPF Ur Epithelial Cells Rare (NOT SEEN) /HPF Amorphous Sediment Few (NOT SEEN) /HPF Urine Bacteria Few (0-FEW/HPF) /HPF Granular Casts (Auto) Few Fine Granular Casts Occasional H (NOT SEEN) /LPF Urine Mucus Few H (NOT SEEN) /LPF 01/21/20 Range/Units 06:34 WBC 13.8 H (5.0-10.0) 10^3/uL RBC 5.24 (4.6-6.2) 10^6/uL Hgb 15.8 (14.0-18.0) g/dL Hct 47.3 (40.0-54.0) % MCV 90.3 (80-100) fL MCH 30.2 (27.0-34.0) pg MCHC 33.4 (33.0-35.0) g/dL Plt Count 218 (150-450) 10^3/uL Neut % (Auto) 75.4 H (42.2-75.2) % Lymph % (Auto) 17.6 L (20.5-50.1) % [place] % (Auto) 6.7 (2-8) % Eos % (Auto) 0.2 L (1.0-3.0) % Baso % (Auto) 0.1 (0.0-1.0) % Sodium (136-145) mmol/L Potassium (3.5-5.1) mmol/L Chloride (98-107) mmol/L Carbon Dioxide (21-32) mmol/L Anion Gap (7-13) mEq/L BUN (7-18) mg/dL Creatinine (0.70-1.30) mg/dL Est Cr Clr Drug Dosing mL/min Estimated GFR (MDRD) Glucose (74-99) mg/dL Calcium (8.5-10.1) mg/dL Troponin I (0.000-0.056) ng/mL Urine Color (YELLOW) Urine Appearance (CLEAR) Urine pH (5.0-9.0) Ur Specific [place] (1.005-1.030) Urine Protein (NEGATIVE) Urine Glucose (UA) (NEGATIVE) Urine Ketones (NEGATIVE) Urine Occult Blood (NEGATIVE) Urine Nitrite (NEGATIVE) Urine Bilirubin (NEGATIVE) Urine Urobilinogen (0.2-1.0) mg/dL Ur Leukocyte Esterase (NEGATIVE) Urine RBC /HPF Urine WBC (0-5/HPF) /HPF Ur Epithelial Cells (NOT SEEN) /HPF Amorphous Sediment (NOT SEEN) /HPF Urine Bacteria (0-FEW/HPF) /HPF Granular Casts (Auto) Fine Granular Casts (NOT SEEN) /LPF Urine Mucus (NOT SEEN) /LPF Med Orders - Current: Current Medications Acetaminophen (Tylenol) 650 mg PO Q4H PRN PRN Reason: Pain (Mild 1-3)/fever Aspirin (Aspirin) 325 mg PO WITHBREAKFAST [facility] Last Admin: 01/21/20 08:57 Dose: 325 mg Documented by: Atorvastatin Calcium (Lipitor) 20 mg PO BEDTIME [facility] Last Admin: 01/21/20 00:28 Dose: 20 mg Documented by: Clopidogrel Bisulfate (Plavix) 75 mg PO DAILY [facility] Last Admin: 01/21/20 10:46 Dose: 75 mg Documented by: Enoxaparin Sodium (Lovenox) 60 mg SUBCUT Q12HR [facility] Last Admin: 01/21/20 08:57 Dose: 60 mg Documented by: Metoprolol Tartrate (Lopressor) 25 mg PO BID [facility] Last Admin: 01/21/20 10:45 Dose: 25 mg Documented by: Nitroglycerin (Nitrostat) 0.4 mg SL Q5M PRN PRN Reason: Chest Pain Last Admin: 01/20/20 15:03 Dose: 0.4 mg Documented by: Ondansetron HCl (Zofran Odt) 4 mg PO Q6H PRN PRN Reason: nausea, able to take PO Sodium Chloride (Saline Flush) 10 ml FLUSH ASDIRECTED PRN PRN Reason: Keep Vein Open Last Admin: 01/21/20 08:57 Dose: 10 ml Documented by: Zolpidem Tartrate (Ambien) 5 mg PO BEDTIME PRN PRN Reason: Sleep Discontinued Medications Aspirin (Aspirin) 324 mg PO ONETIME ONE Stop: 01/20/20 14:32 Last Admin: 01/20/20 14:48 Dose: 324 mg Documented by: Aspirin (Aspirin) 325 mg PO ONETIME ONE Stop: 01/21/20 00:16 Last Admin: 01/21/20 00:27 Dose: 325 mg Documented by: Clopidogrel Bisulfate (Plavix) 300 mg PO ONETIME ONE Stop: 01/21/20 00:43 Last Admin: 01/21/20 00:46 Dose: 300 mg Documented by: Heparin Sodium (Porcine) (Heparin Sodium) 5,000 units SUBCUT Q8HR [facility] Last Admin: 01/20/20 21:47 Dose: Not Given Documented by: Sodium Chloride (Saline Flush) 10 ml FLUSH ASDIRECTED PRN PRN Reason: Keep Vein Open Last Admin: 01/20/20 14:49 Dose: 10 ml Documented by: - Exam Quality Assessment: Denies: Supplemental Oxygen General: Reports: Alert, Oriented Neck: Reports: Supple Lungs: Reports: Clear to Auscultation, Normal Respiratory Effort Cardiovascular: Reports: Regular Rate, Regular Rhythm Neurological: Reports: No New Focal Deficit Psy/Mental Status: Reports: Alert, Normal Affect, Normal Mood
[2020-01-21 17:06] VITALS: BP 112/63; PULSE 71
== END 2020-01-21 17:35 | DRG 281 ==
LOC: DL.ED 14:22 → DL.MS 16:08 → UNDOADMOB 16:08 → DL.ED 16:12 → DL.MS 01-21 15:43 → INTOOBSV 01-21 15:43 → OBSVTOIN 01-21 15:43
PROVIDERS: ADMIT Internal Medicine; ATTEND Internal Medicine
DX: I21.4 Non-ST elevation (NSTEMI) myocardial infarction (principal); N17.9 Acute kidney failure, unspecified; Z20.828 Contact with and (suspected) exposure to other viral communicable diseases; D72.829 Elevated white blood cell count, unspecified; F17.210 Nicotine dependence, cigarettes, uncomplicated; Z79.01 Long term (current) use of anticoagulants; Z79.82 Long term (current) use of aspirin; Z85.828 Personal history of other malignant neoplasm of skin; Z86.19 Personal history of other infectious and parasitic diseases; Z91.018 Allergy to other foods
CPT/HCPCS: 36415 ×2; 71045; 80048; 80053; 81001; 82150; 82550; 83690; 83880; 84484 ×3; 85025 ×2; 85379; 85610; 85730; 86140; 87040 ×2; 87086; 93005; A9270 ×9; J1650 ×2; U0002; 96372; 99285-25; G0378